=== PATIENT | male | born 1960 | race American Indian/Alaskan Native ===

== ENCOUNTER 2016-07-18 11:14 | Emergency (ER) | payer SELFPAY ==
--- NOTE | 2016-07-18 13:10 | Emergency Department Report ---
Chief Complaint: Abdominal Pain Stated Complaint: BLOOD IN URINE Time Seen by Provider: 07/18/16 13:05 - HPI History of Present Illness: Patient here complaining of urinary burning and blood in urine for 2 days. He said he is also having pain to both sides of his back. He reports that he has a history of kidney stones. Pain is 10 out of 10. Denies any nausea vomiting. Denies any fever or chills. - ROS Review of Systems: All systems are negative unless stated in HPI above. - Exam Vital Signs: Vital Signs 07/18/16 12:02 Temperature 98.5 F Pulse Rate 91 H Respiratory 18 Rate Blood Pressure 130/89 O2 Sat by Pulse 98 Oximetry Physical Exam: General: This is a 56-year-old male well-nourished well-developed in no acute distress. Abdomen: Nontender to palpate in all quadrants, positive left CVA tenderness. Normal bowel sounds MSE screening note: Focused history and physical exam performed. Due to findings the following was ordered:see mdm ED Medical Decision Making - Medical Decision Making Medical decision making: Patient seen by provider in triage area. Appropriate protocol activated and patient to main ED to be seen by physician. ED Disposition for MSE Condition: Stable
[2016-07-18 13:36] LABS: Hematocrit 46.6 % (35.5-45.6); Hemoglobin 16.1 gm/dl (11.8-15.2); Mean Corpuscular HGB Conc 34 % (32-34); Mean Corpuscular Hemoglobin 31 pg (28-32); Mean Corpuscular Volume 91 fl (84-94); Platelet Count 198 K/mm3 (140-440); Red Blood Count 5.11 M/mm3 (3.65-5.03); Red Cell Distribution Width 13.5 % (13.2-15.2); White Blood Count 5.9 K/mm3 (4.5-11.0)
[2016-07-18 13:53] LABS: Bilirubin,Urine NEG (Negative); Blood,Urine MOD (Negative); Ketones,Urine NEG (Negative); Leukocyte Esterase,Urine TR (Negative); Nitrite,Urine NEG (Negative); Protein,Urine <15 mg/dL mg/dL (Negative); Urobilinogen,Urine < 2.0 mg/dL (<2.0)
[2016-07-18 13:58] LABS: Alanine Aminotransferase 31 units/L (7-56); Albumin 4.3 g/dL (3.9-5); Albumin/Globulin Ratio 1.3 %; Alkaline Phosphatase 179 units/L (35-129); Amylase 65 units/L (27-131); Anion Gap 18 mmol/L; BUN/Creatinine Ratio 12.22; Bilirubin,Total 0.5 mg/dL (0.1-1.2); Blood Urea Nitrogen 11 mg/dL (9-20); Calcium 9.2 mg/dL (8.4-10.2); Carbon Dioxide 25 mmol/L (22-30); Chloride 100.5 mmol/L (98-107); Glucose 91 mg/dL (75-100); Lipase 23 units/L (13-60); Potassium 4.6 mmol/L (3.6-5.0); Sodium 139 mmol/L (137-145); Total Protein 7.7 g/dL (6.3-8.2)
[2016-07-18 14:06] LABS: Bilirubin,Direct < 0.2 mg/dL (0-0.2)
[2016-07-18 14:25] LABS: Anisocytosis 1+; Basophils % (Manual) 0 % (0.0-1.8); Blastocytes % (Manual) 0 %; Diff Status Complete
--- NOTE | 2016-07-18 15:09 | Cat Scan Report ---
CT ABDOMEN AND PELVIS WITHOUT CONTRAST INDICATION: Flank pain and urinary burning. COMPARISON: None similar. FINDINGS: Noncontrast abdomen and pelvis CT performed. LUNG BASES: Nonspecific distal esophageal wall thickening, not excluded for gastroesophageal reflux and/or hiatal hernia, amongst others. ABDOMEN: Please note that sensitivity to detect small visceral lesions is limited due to the absence of intravenous or oral contrast. Tiny hepatic dome calcified granuloma, axial image 31, series 2. Left hepatic lobe extends into the left upper quadrant. However, grossly unremarkable unenhanced liver, spleen, gallbladder, pancreas, adrenals, non-aneurysmal abdominal aorta and the IVC. No ascites. Largest left paraaortic lymph node is approximately 1.4 x 0.8 cm, axial image 140, series 2. Few small mesenteric lymph nodes near its root also measure up to approximately 1.3 x 0.7 cm, axial image 169, series 2 with subtle surrounding haziness/"booker mesentery". Nonopacified GI tract evaluation limited, though grossly nonobstructive. Normal appendix. Usual colonic stool. Few small descending colon diverticuli. Small fat containing umbilical hernia with a transverse neck of 1 cm. Specifically, nonhydronephrotic kidneys with an approximately 2.3 cm right interpolar simple cyst and a 2 mm nonobstructing right upper renal pole calculus incidentally noted. No perinephric stranding. PELVIS: Few proximal sigmoid diverticuli without acute inflammation. Nonopacified urinary bladder suboptimally distended and assessed. Grossly unremarkable seminal vesicles and prostate. No free fluid or significant adenopathy. No focal suspicious osseous lesions, though pelvis somewhat heterogeneous with prominent trabeculae, right iliac more than left. Right more than left SI joint degenerative bridging also seen. Mild bilateral hips and few lower thoracic spine degenerative changes may also be present. CONCLUSION: 1. No acute renal CT abnormality with a small right renal cyst and tiny nonobstructing right renal calculus incidentally noted, as described. 2. Mesenteric root haziness, nonspecific CT appearance with various differential considerations including, though not limited to mesenteritis, mesenteric edema or lymphoma. Please correlate. 3. Nonspecific bony appearance, more so the pelvis with possibilities including metabolic, renal disease versus a pattern of bony demineralization, amongst others, as described. 4. Various other incidental findings, including distal esophageal thickening and diverticulosis, amongst others, as above. Thank you for the opportunity to participate in this patient's care.
[2016-07-18] MEDS ORDERED: TYLENOL PO ONE (20:58)
[2016-07-19 01:36] VITALS: BP 157/101
--- NOTE | 2016-07-19 01:47 | Admit Criteria Form ---
Admission Criteria Documentation: ABDOMINAL PAIN Clinical Indications for Admission to Inpatient Care (Place 'X' for any and all applicable criteria): Admission is indicated for ANY ONE of the following(1)(2)(3)(4)(5): [X ]I. Inpatient admission required rather than observation care (Also use Abdominal Pain: Observation Care, as appropriate) because of ANY ONE of the following: [X ]a) Severe pain requiring acute inpatient management [ ]b) Identification of etiology/finding that requires inpatient care (eg, aortic dissection, free air) [ ]c) Absent bowel sounds with complete ileus(6) [ ]d) Suspected toxic megacolon [ ]e) Severe electrolyte abnormalities requiring inpatient care [ ]f) High fever or infection requiring inpatient admission as indicated by ANY ONE of following(7)(8): [ ] i) Appropriate outpatient or observational care antimicrobial treatment unavailable, not effective, or not feasible [ ] ii) Documented bacteremia [ ] iii) Temperature > 104.9 degrees F (oral) [ ] iv) T >103.1 F (oral) or < 96.8 F(rectal) that does not respond to all emergency treatment measures [ ]g) Signs of intestinal obstruction [B] [ ]h) Hemodynamic instability [ ]i) IV fluid to replace significant ongoing losses (greater than 3 L/m2 per day) (12)(13) [ ]j) Percutaneous or open drainage (eg, abscess, biliary tract ) procedures [ ]k) Parenteral nutrition regimen that must be implemented on inpatient basis [ ]l) Other condition,treatment or monitoring requiring inpatient admission. [ ]II. Peritoneal signs present [ ]III. Surgery needed that cannot be performed on an ambulatory basis. [ ]IV. Evaluation requires patient to not eat or drink for extended period ( eg, more than 24 hours). [ ]V. Contraindications and/or Inappropriate clinical situations for Observational Care in patients with abdominal pain, when ANY ONE of the following is required: [ ]a) Thorough evaluation is required to prevent catastrophic events due to delays in diagnosing (e.g.Mesenteric ischemia) 1,3 [ ]b) Patient with severe pathology or with chronic symptoms unlikely to improve in the ED stay (3) [ ]. General contraindications and/or Inappropriate clinical situations for Observational Care in patients with abdominal pain, when ANY ONE of the following is required: [ ]a) Prediction of prolongation of LOS based on ANY ONE of the following may be considered as a contraindication for observational care 2, 3, 4, 5, 6, 7, 8, 9, 10, 11 [ ]i) Age > 65 yrs. [ ]ii) Patient arriving by ambulance [ ]iii) Patient with high acuity [ ]iv) Patient requiring vital sign monitoring [ ]v) Patient on IV medication [ ]b) Systolic blood pressures 180mmHg 3,12 [ ]c) Patient with altered mental status including delirium and other alteration of consciousness, (3) [ ]d) Patient whose discharge disposition will be to a fdc home or rehabilitation home should not be managed in Emergency Department Observation Unit. CMS rule requires 3 days hospital stay before such placement.3,13 [ ]e) Patient with failure to thrive due to broad array of etiologies 3,16,17 [ ]f) Inability to ambulate 3,14 Extended stay beyond goal length of stay may be needed for(2)(3): [ ]a) Persistent abdominal pain with suspected intra-abdominal process [ ]b) Diagnosed condition requiring continued stay (e.g., pancreatitis, complicated diverticulitis) [ ]c) Surgery (e.g., colectomy) The original [facility] content created by [employer] has been revised. The portions of the content which have been revised are identified through the use of italic text or in bold, and [facility]formerly [employer] has neither reviewed nor approved the modified material.All other unmodified content is copyright [facility]. Please see references footnoted in the original [facility] edition 2016 Admission Criteria Met: Yes
[2016-07-19] MEDS ORDERED: ULTRAM PO ONE (02:02)
[2016-07-19] MEDS ORDERED: TORADOL IM ONE (02:02)
--- NOTE | 2016-07-19 02:02 | Emergency Department Report ---
ED General Adult HPI - General Chief complaint: Abdominal Pain Stated complaint: BLOOD IN URINE Time Seen by Provider: 07/18/16 13:05 Source: patient Mode of arrival: Ambulatory Limitations: No Limitations - History of Present Illness Initial comments: This is a 56-year-old male, previously unknown to me. He currently does not have a primary care doctor. May have a past medical history of hypertension/ elevated blood pressure. Patient reports a distant history of renal colic. Patient presents to the ER with intermittent hematuria for the past 2 days. He reports that his initial episode was clear urine, followed by hematuria at the end of the stream. The next episode was an episode of bloody urination at the beginning of the stream. There is no testicular pain. No fevers or chills. No chest pain or shortness of breath. The patient does admit to bilateral atraumatic flank pain. He used to smoke cigarettes. he did admit to dysuria. The patient denies urinary frequency. Denies unintentional weight loss. -: Gradual Location: back, genitals Radiation: non-radiation Severity scale (0 -10): 10 Quality: aching Consistency: intermittent Improves with: none Worsens with: none Associated Symptoms: denies: confusion, chest pain, cough, diaphoresis, fever/ chills, headaches, loss of appetite, malaise, nausea/vomiting, rash, seizure, shortness of breath, syncope, weakness - Related Data Previous Rx's Medication Instructions Recorded Last Taken Type Ketorolac [Toradol] 10 mg PO Q6H PRN #20 tablet 07/19/16 Unknown Rx oxyCODONE [Roxicodone] 5 mg PO Q6HR PRN #15 tablet 07/19/16 Unknown Rx Allergies Allergy/AdvReac Type Severity Reaction Status Date / Time No Known Allergies Allergy Verified 07/26/14 05:28 ED Review of Systems ROS: Stated complaint: BLOOD IN URINE Other details as noted in HPI ED Past Medical Hx - Past Medical History Previous Medical History?: Yes Hx Hypertension: Yes (no medications for months) Hx Kidney Stones: Yes - Surgical History Past Surgical History?: No - Social History Smoking Status: Current Every Day Smoker Substance Use Type: Alcohol, Non Opiate Pain - Medications Home Medications: Home Medications Medication Instructions Recorded Confirmed Last Taken Type Ketorolac [Toradol] 10 mg PO Q6H PRN #20 tablet 07/19/16 Unknown Rx oxyCODONE [Roxicodone] 5 mg PO Q6HR PRN #15 tablet 07/19/16 Unknown Rx ED Physical Exam - General Limitations: No Limitations General appearance: alert, in no apparent distress - Head Head exam: Present: atraumatic, normocephalic - Eye Eye exam: Present: normal appearance, EOMI. Absent: nystagmus - ENT ENT exam: Present: normal exam, normal orophraynx, mucous membranes moist - Neck Neck exam: Present: normal inspection, full ROM. Absent: tenderness, meningismus - Respiratory Respiratory exam: Present: normal lung sounds bilaterally. Absent: respiratory distress, wheezes, rales, rhonchi, stridor, chest wall tenderness - Cardiovascular Cardiovascular Exam: Present: regular rate, normal rhythm, normal heart sounds. Absent: bradycardia, tachycardia, irregular rhythm, systolic murmur, diastolic murmur, rubs, gallop - GI/Abdominal GI/Abdominal exam: Present: soft, normal bowel sounds. Absent: distended, tenderness, guarding, rebound, rigid, pulsatile mass - Rectal Rectal exam: Present: deferred - exam: Present: normal inspection. Absent: testicular tenderness External exam: Present: normal external exam, other (uncircumcised. No testicular tenderness. There is a normal cremasteric reflex bilaterally.) - Extremities Exam Extremities exam: Present: normal inspection, full ROM, normal capillary refill. Absent: tenderness, pedal edema, joint swelling, calf tenderness - Back Exam Back exam: Present: normal inspection, full ROM. Absent: tenderness, CVA tenderness (R), CVA tenderness (L), muscle spasm, paraspinal tenderness - Neurological Exam Neurological exam: Present: alert, oriented X3, normal gait, other (Extraocular movements intact. Tongue midline. No facial droop. Facial sensation intact to light touch in the V1, V2, V3 distribution bilaterally. 5 and 5 strength in 4 extremities.. Sensation is intact to light touch in 4 extremities.). Absent : motor sensory deficit - Psychiatric Psychiatric exam: Present: normal affect, normal mood - Skin Skin exam: Present: warm, dry, intact, normal color. Absent: rash ED Course Vital Signs 07/18/16 07/18/16 07/19/16 12:02 20:56 01:35 Temperature 98.5 F 98.7 F Pulse Rate 91 H 82 86 Respiratory 18 20 10 L Rate Blood Pressure 130/89 Blood Pressure 142/96 157/101 [Left] O2 Sat by Pulse 98 97 99 Oximetry - Reevaluation(s) Reevaluation #1: 07/19/16 02:15 Differential diagnosis: Urinary tract infection, malignancy, renal colic Assessment and plan: 56-year-old male with intermittent hematuria, reports of dysuria, and flank pain. He is afebrile with reassuring vital signs. His physical exam is benign and unremarkable. There is no posterior back tenderness. There is no CVA tenderness. His testicular exam is unremarkable. He walks with a steady gait, has no clinical indication of epidural compression syndrome at this time. I clinically doubt kidney infection at this time given the above findings. In addition, his urinalysis demonstrates hematuria, but does not corroborate urinary tract infection. He felt improved after oral pain medication, and is tolerating liquid feeds. Patient will be discharged with pain medication, and instructions to follow up with outpatient urology. Return precautions are reviewed. Given that his abdomen is soft and benign, the CT scan finding of "booker mesentery" is appreciated, but I think it is very unlikely that the patient has an acute intra-abdominal condition that requires emergent intervention at this time. 07/19/16 02:17 ED Medical Decision Making - Lab Data Result diagrams: 07/18/16 13:17 07/18/16 13:17 Vital Signs 07/18/16 07/18/16 07/19/16 12:02 20:56 01:35 Temperature 98.5 F 98.7 F Pulse Rate 91 H 82 86 Respiratory 18 20 10 L Rate Blood Pressure 130/89 Blood Pressure 142/96 157/101 [Left] O2 Sat by Pulse 98 97 99 Oximetry Lab Results 07/18/16 07/18/16 07/18/16 Range/Units 13:13 13:17 13:17 WBC 5.9 (4.5-11.0) K/mm3 RBC 5.11 H (3.65-5.03) M/mm3 Hgb 16.1 H (11.8-15.2) gm/dl Hct 46.6 H (35.5-45.6) % MCV 91 (84-94) fl MCH 31 (28-32) pg MCHC 34 (32-34) % RDW 13.5 (13.2-15.2) % Plt Count 198 (140-440) K/mm3 Add Manual Diff Complete Total Counted 100 Seg Neutrophils % Programming Engineer Seg Neuts % (Manual) 33.0 L (40.0-70.0) % Band Neutrophils % 1.0 % Lymphocytes % (Manual) 52.0 H (13.4-35.0) % Reactive Lymphs % (Man) 0 % Monocytes % (Manual) 11.0 H (0.0-7.3) % Eosinophils % (Manual) 3.0 (0.0-4.3) % Basophils % (Manual) 0 (0.0-1.8) % Metamyelocytes % 0 % Myelocytes % 0 % Promyelocytes % 0 % Blast Cells % 0 % Nucleated RBC % Not Reportable Seg Neutrophils # Man 1.9 (1.8-7.7) K/mm3 Band Neutrophils # 0.1 K/mm3 Lymphocytes # (Manual) 3.1 (1.2-5.4) K/mm3 Abs React Lymphs (Man) 0.0 K/mm3 Monocytes # (Manual) 0.6 (0.0-0.8) K/mm3 Eosinophils # (Manual) 0.2 (0.0-0.4) K/mm3 Basophils # (Manual) 0.0 (0.0-0.1) K/mm3 Metamyelocytes # 0.0 K/mm3 Myelocytes # 0.0 K/mm3 Promyelocytes # 0.0 K/mm3 Blast Cells # 0.0 K/mm3 WBC Morphology Not Reportable Hypersegmented Neuts Not Reportable Hyposegmented Neuts Not Reportable Hypogranular Neuts Not Reportable Smudge Cells Not Reportable Toxic Granulation Not Reportable Toxic Vacuolation Not Reportable Dohle Bodies Not Reportable Pelger-Huet Anomaly Not Reportable Sandy Rods Not Reportable Platelet Estimate Not Reportable Clumped Platelets Not Reportable Plt Clumps, EDTA Not Reportable Large Platelets Not Reportable Giant Platelets Not Reportable Platelet Satelliting Not Reportable Plt Morphology Comment Not Reportable RBC Morphology Not Reportable Dimorphic RBCs Not Reportable Polychromasia Not Reportable Hypochromasia Not Reportable Poikilocytosis Not Reportable Anisocytosis 1+ Microcytosis Not Reportable Macrocytosis Not Reportable Spherocytes Not Reportable Pappenheimer Bodies Not Reportable Sickle Cells Not Reportable Target Cells Not Reportable Tear Drop Cells Not Reportable Ovalocytes Not Reportable Helmet Cells Not Reportable Rodriguez-Wheatfield Bodies Not Reportable Murphy Rings Not Reportable Naa Cells Not Reportable Bite Cells Not Reportable Crenated Cell Not Reportable Elliptocytes Not Reportable Acanthocytes (Spur) Not Reportable Rouleaux Not Reportable Hemoglobin C Crystals Not Reportable Schistocytes Not Reportable Malaria parasites Not Reportable Bart Bodies Not Reportable Hem Pathologist Commnt No Sodium 139 (137-145) mmol/L Potassium 4.6 (3.6-5.0) mmol/L Chloride 100.5 (98-107) mmol/L Carbon Dioxide 25 (22-30) mmol/L Anion Gap 18 mmol/L BUN 11 (9-20) mg/dL Creatinine 0.9 (0.8-1.5) mg/dL Estimated GFR > 60 ml/min BUN/Creatinine Ratio 12.22 % Glucose 91 (75-100) mg/dL Calcium 9.2 (8.4-10.2) mg/dL Total Bilirubin 0.5 (0.1-1.2) mg/dL Direct Bilirubin < 0.2 (0-0.2) mg/dL AST 32 (5-40) units/L ALT 31 (7-56) units/L Alkaline Phosphatase 179 H (35-129) units/L Total Protein 7.7 (6.3-8.2) g/dL Albumin 4.3 (3.9-5) g/dL Albumin/Globulin Ratio 1.3 % Amylase 65 (27-131) units/L Lipase 23 (13-60) units/L Urine Color Yellow (Yellow) Urine Turbidity Clear (Clear) Urine pH 7.0 (5.0-7.0) Ur Specific [place] 1.012 (1.003-1.030) Urine Protein <15 mg/dl (Negative) mg/dL Urine Glucose (UA) Neg (Negative) mg/dL Urine Ketones Neg (Negative) mg/dL Urine Blood Mod (Negative) Urine Nitrite Neg (Negative) Urine Bilirubin Neg (Negative) Urine Urobilinogen < 2.0 (<2.0) mg/dL Ur Leukocyte Esterase Tr (Negative) Urine WBC (Auto) 2.0 (0.0-6.0) /HPF Urine RBC (Auto) 27.0 (0.0-6.0) /HPF U Epithel Cells (Auto) 1.0 (0-13.0) /HPF - Radiology Data Radiology results: report reviewed, image reviewed Noncontrast CT scan of the abdomen and pelvis demonstrates no acute renal CT abnormality with a small right renal cyst and nonobstructing right renal calculus. Numerous incidental findings. Critical care attestation.: If time is entered above; I have spent that time in minutes in the direct care of this critically ill patient, excluding procedure time. ED Disposition Clinical Impression: Hematuria Disposition: DISCHARGED TO HOME OR SELFCARE Is pt being admited?: No Does the pt Need Aspirin: No Condition: Good Instructions: Acute Hematuria (ED) Additional Instructions: Take the pain medication as directed. Rest and avoid heavy lifting. If taking the oxycodone pain medication, do not drive, operate motor vehicles, or consume alcohol. I recommend that you follow-up with a urology specialist within the next [address] Nelson is a local urology specialist. It is very important to closely follow up with outpatient urology for further evaluation of blood in the urine. Not following up in a timely fashion may result undiagnosed tumor/ cancer/malignancy of the urinary tract. Cultures was sent today, and results will be available the next 3-5 days. Please have a primary care doctor or urology specialist contact the medical records department to obtain culture results. Return to the ER right away with new pain, worsening pain, migration of pain, fevers or chills, nausea or vomiting, inability to tolerate liquid feeds. Referrals: PRIMARY MD NICHELLE [Primary Care Provider] - 3-5 Days BASILIA NELSON MD [Staff Physician] - 3-5 Days
== END 2016-07-19 03:03 | disposition home or self-care (01) ==
LOC: ED 11:14
DX: R31.9 Hematuria, unspecified (principal); R10.9 Unspecified abdominal pain; I10 Essential (primary) hypertension; F17.200 Nicotine dependence, unspecified, uncomplicated
CPT/HCPCS: 36415; 74176; 80048; 80074; 81001; 82150; 83690; 85007; 85025; 87086; 96372; 99284; J1885